=== PATIENT | female | born 1945 | race Caucasian/White ===

== ENCOUNTER 2019-05-01 22:42 | Emergency (ER) | payer MEDICARE, OTHER ==
--- NOTE | 2019-05-01 23:47 | ED ---
Fall HPI - General Chief Complaint: Fall Stated Complaint: Fall Time Seen by Provider: 05/01/19 22:44 Source: EMS Mode of arrival: EMS - History of Present Illness Initial Comments: Toshia is a pleasant 73-year-old female with a history of rheumatoid arthritis who presents to the emergency department today for evaluation of hematoma to her right forehead. Patient reports that due to her rheumatoid arthritis she has chronic pain in her legs and some difficulty with walking. She states that today she attempted to step up on a curb when she didn't lift her leg INF and tripped. She reports she hit her right knee and the right side of her forehead. She did not lose consciousness, she was able to stand and ambulate with assistance after this. Family noted that she had a hematoma on her right forehead and advised her to come to the ER for further evaluation. Patient denies any headache, vision changes. She is not on any antiplatelet or anticoagulant medications. - Related Data Home Medications Medication Instructions Recorded Confirmed Celecoxib [CeleBREX] 200 mg PO DAILY 05/01/19 05/01/19 Ciprofloxacin Ophth Soln [Cipro 1 drops BOTH EYES TID 05/01/19 05/01/19 0.3% Ophth Soln] Cyclobenzaprine [Flexeril] 10 mg PO BID 05/01/19 05/01/19 DULoxetine HCL [Cymbalta] 60 mg PO DAILY 05/01/19 05/01/19 Furosemide [Lasix] 20 mg PO BID 05/01/19 05/01/19 LORazepam [Ativan] 1 mg PO BID PRN 05/01/19 05/01/19 Lansoprazole [Prevacid] 30 mg PO DAILY 05/01/19 05/01/19 Lisinopril [Zestril] 5 mg PO DAILY 05/01/19 05/01/19 Metoprolol Tartrate [Lopressor] 50 mg PO BID 05/01/19 05/01/19 oxyCODONE-APAP 10-325MG [Percocet 1 tab PO TID PRN 05/01/19 05/01/19 10-325 mg] Allergies Allergy/AdvReac Type Severity Reaction Status Date / Time Cephalosporins AdvReac Rash/Hives Verified 05/01/19 23:33 dextromethorphan AdvReac Unknown Verified 05/01/19 23:33 Penicillins AdvReac Rash/Hives Verified 05/01/19 23:33 sulfamethoxazole AdvReac Abdominal Verified 05/01/19 23:33 [From Bactrim] Pain trimethoprim [From Bactrim] AdvReac Abdominal Verified 05/01/19 23:33 Pain Review of Systems ROS Statement: Those systems with pertinent positive or pertinent negative responses have been documented in the HPI. ROS Other: All systems not noted in ROS Statement are negative. Past Medical History Past Medical History: Asthma, Heart Failure, COPD, Diabetes Mellitus, Hyperlipidemia, Hypertension, Myocardial Infarction (AL) History of Any Multi-Drug Resistant Organisms: None Reported Past Surgical History: Heart Catheterization, Hysterectomy, Tonsillectomy Past Psychological History: Anxiety, Depression Smoking Status: Never smoker Past Alcohol Use History: None Reported Past Drug Use History: None Reported General Exam - General Exam Comments Initial Comments: Physical Exam GENERAL: Patient is well-developed and well-nourished. Patient is nontoxic and well-hydrated and is in no distress. HENT: Normocephalic Hematoma to right forehead approximately 2-3 cm in diameter, no abrasions or bleeding TM normal bilaterally No raccoon eyes or pearce signs, no signs of basilar skull fracture EYES: PERRL, EOMI PULMONARY: Unlabored respirations. No audible rales rhonchi or wheezing was noted. CARDIOVASCULAR: There is a regular rate and rhythm without any murmurs gallops or rubs. ABDOMEN: Soft and nontender with normal bowel sounds. SKIN: Contusion right. : Deferred NEUROLOGIC: Patient is alert and oriented x3. Moving all extremities spontaneously MUSCULOSKELETAL: Changes of bilateral hands Decreased range of motion of hip and knee secondary to arthritis contusion right knee with no effusion PSYCHIATRIC: Normal psychiatric evaluation Limitations: no limitations Course Vital Signs 05/01/19 22:43 Temperature 98.4 F Pulse Rate 81 Respiratory 18 Rate Blood Pressure 138/77 O2 Sat by Pulse 100 Oximetry Medical Decision Making - Medical Decision Making The patient was seen and evaluated history was obtained from the patient and EMS Patient a ground level fall from standing hit her head on the ground did not lose consciousness she is not on antiplatelet or anticoagulant medications which she does have a large hematoma to the right forehead as well as a small contusion of the right knee Imaging was ordered Imaging resulted with no acute findings there is no signs of skull fracture or intracranial hemorrhage. These results were discussed with the patient who expresses relief and is comfortable with plan for discharge home. Pertaining care were answered return parameters were discussed patient will be discharged home with information on closed head injury and concussion. Patient's son will be staying with her tonight and throughout the day tomorrow for further observation. Disposition Clinical Impression: Fall, Hematoma Disposition: HOME SELF-CARE Condition: Stable Instructions (If sedation given, give patient instructions): Concussion (ED), Fall Prevention for Older Adults (ED) Is patient prescribed a controlled substance at d/c from ED?: No Referrals: Nonstaff,Physician [Primary Care Provider] - 1-2 days
--- NOTE | 2019-05-02 00:07 | CT ---
EXAM: CT Head Without Intravenous Contrast CLINICAL HISTORY: Pain TECHNIQUE: Axial computed tomography images of the head/brain without intravenous contrast. CTDI is 0.085, 0.085, 45.2, 13.1 mGy and DLP is 1443.2 mGy-cm. This CT exam was performed using one or more of the following dose reduction techniques: automated exposure control, adjustment of the mA and/or kV according to patient size, and/or use of iterative reconstruction technique. COMPARISON: No relevant prior studies available. FINDINGS: Brain: No acute infarct, hemorrhage, mass or edema. Chronic small vessel ischemic disease. Ventricles: Unremarkable. No ventriculomegaly. Bones/joints: Unremarkable. No acute fracture. Soft tissues: Right frontal scalp soft tissue swelling, likely posttraumatic. Sinuses: Unremarkable as visualized. No acute sinusitis. Mastoid air cells: Unremarkable as visualized. No mastoid effusion. IMPRESSION: No acute intracranial findings. EXAM: CT Cervical Spine Without Intravenous Contrast CLINICAL HISTORY: Pain TECHNIQUE: Axial computed tomography images of the cervical spine without intravenous contrast. CTDI is 0.085, 0.085, 45.2, 13.1 mGy and DLP is 1443.2 mGy-cm. This CT exam was performed using one or more of the following dose reduction techniques: automated exposure control, adjustment of the mA and/or kV according to patient size, and/or use of iterative reconstruction technique. COMPARISON: No relevant prior studies available. FINDINGS: Vertebrae: No acute fracture or traumatic malalignment. Discs/spinal canal/neural foramina: Multilevel degenerative changes. No spinal canal stenosis. Soft tissues: Unremarkable. Lung apices: Probable atelectasis within the lung apices. IMPRESSION: No acute findings.
--- NOTE | 2019-05-02 00:18 | XR ---
EXAM: XR Right Knee, 3 views CLINICAL HISTORY: Pain TECHNIQUE: Three views of the right knee. COMPARISON: No relevant prior studies available. FINDINGS: Bones/joints: Unremarkable. No acute fracture. No dislocation. Soft tissues: Unremarkable. IMPRESSION: Normal right knee x-rays.
[2019-05-02 01:31] VITALS: BP 134/79; PULSE 83; RESP 17; TEMP 97.6
== END 2019-05-02 01:46 | disposition home or self-care (01) ==
LOC: EC 22:42
DX: S00.83XA Contusion of other part of head, initial encounter (principal); S80.01XA Contusion of right knee, initial encounter; M16.10 Unilateral primary osteoarthritis, unspecified hip; M17.10 Unilateral primary osteoarthritis, unspecified knee; F41.9 Anxiety disorder, unspecified; F32.9 Major depressive disorder, single episode, unspecified; I25.2 Old myocardial infarction; I11.0 Hypertensive heart disease with heart failure; I50.9 Heart failure, unspecified; Z79.899 Other long term (current) drug therapy; Z88.0 Allergy status to penicillin; Z88.1 Allergy status to other antibiotic agents; Z88.2 Allergy status to sulfonamides; Z88.8 Allergy status to other drugs, medicaments and biological substances; W01.198A Fall on same level from slipping, tripping and stumbling with subsequent striking against other object, initial encounter
CPT/HCPCS: 70450; 72125; 99284